=== PATIENT | female | born 1955 | race Caucasian/White ===

== ENCOUNTER 2023-08-25 11:39 | Emergency (ER) | payer OTHER ==
[~2023-08-25] VITALS: Ht 147.3 cm; Wt 77.1 kg
[2023-08-25 11:52] VITALS: BP_SYST 135; PULSE 87; RESP 20; TEMP 98.3; O2SAT 95
[2023-08-25 13:11] LABS: COVID19 ANTIGEN SOFIA FIA NEGATIVE (NEGATIVE)
[2023-08-25 13:12] LABS: INFLUENZA TYPE A Negative (NEGATIVE); INFLUENZA TYPE B NEGATIVE (NEGATIVE)
[2023-08-25] MEDS ORDERED: GUAI-723 PO (13:55)
[2023-08-25] MEDS ORDERED: BENZ100C92 PO (13:55)
[2023-08-25] MEDS ORDERED: BENZ1LOZ73 PO (13:55)
[2023-08-25 14:26] VITALS: BP_SYST 135; PULSE 87; RESP 20; TEMP 98.3; O2SAT 95
== END 2023-08-25 14:25 | disposition home or self-care (01) ==
LOC: SED 11:39
DX: J06.9 Acute upper respiratory infection, unspecified (principal); H92.03 Otalgia, bilateral; B97.89 Other viral agents as the cause of diseases classified elsewhere; J02.9 Acute pharyngitis, unspecified; I10 Essential (primary) hypertension; Z88.8 Allergy status to other drugs, medicaments and biological substances; Z79.899 Other long term (current) drug therapy; Z20.822 Contact with and (suspected) exposure to COVID-19
CPT/HCPCS: 36415; 71045; 99284